=== PATIENT | male | born 1970 | race Caucasian/White ===

== ENCOUNTER 2020-01-23 00:59 | Outpatient (CLI) | payer OTHER, SELFPAY ==
[2020-01-23 18:41] LABS: SARS-CoV-2 RNA PCR Negative
== END 2020-01-23 01:00 | disposition home or self-care (01) ==
LOC: ANHCOVIDDT 00:59
PROVIDERS: PCP Internal Medicine; Visit Provider Internal Medicine Gastroenterology
DX: Z01.812 Encounter for preprocedural laboratory examination (principal); Z11.59 Encounter for screening for other viral diseases
CPT/HCPCS: 87635; C9803; U0003

== ENCOUNTER 2020-01-25 01:46 | Day surgery (SDC) | payer OTHER, SELFPAY ==
[2020-01-19 10:37] VITALS: BMI 33.6
[2020-01-25 08:13] VITALS: BP 112/92; PULSE 98; RESP 18; TEMP 36.6; O2SAT 99; BMI 33.6
--- NOTE | 2020-01-25 08:22 | WPDGICN ---
Assessment and Plan Assessment and plan (1) Encounter for screening for colorectal malignant neoplasm: Code(s): Z12.11 - Encounter for screening for malignant neoplasm of colon; Z12.12 - Encounter for screening for malignant neoplasm of rectum Status: Acute Assessment and Plan: Patient presents for screening colonoscopy. He is appears to be at average risk. Plan is for colonoscopy now further recommendations after exam. GI Consult Note Consult date/time: 01/25/20 08:22 HPI: Abiodun Spaulding is a 49 year old male seen in evaluation at the request of Dr Tellez. Patient presents for neoplasia screening. His current weight appetite bowel movements are normal. He denies abdominal pain. His bowel habits are normal. He denies any blood in his stools. Family history is noncontributory. Recent past history is significant for arthroscopic surgery with a rotator cuff repair on the right shoulder. Review of Systems Review of Systems: All systems reviewed & are unremarkable except as noted in HPI and below PMFSH Family History Family History Father Hypertension Mother Patient's mother is in good health Sibling Patient's brother is in good health Social History Social History Smoking status: Former smoker Second hand tobacco smoke exposure: No Smoking end date: 07/13/95 Alcohol intake: current Gender identity (if verbalized by the patient): Male Sexual Orientation (if Verbalized by the Patient): Straight or Heterosexual Meds Home Medications and Allergies Home Medications Medication Instructions Recorded Confirmed Type atorvastatin 20 mg tablet 20 mg PO DAILY #90 tablet 10/28/19 01/25/20 Rx metformin 1,000 mg tablet 1,000 mg PO DAILY 12/19/19 01/25/20 History metformin 500 mg tablet 500 mg PO DAILY 12/19/19 01/19/20 History multivitamin 1 tablet PO DAILY 12/19/19 01/25/20 History omega 9-sgy-yhh-fish oil 1,200 mg 1,200 cap PO DAILY 12/19/19 01/25/20 History (144 mg-216 mg) capsule fluticasone propionate [Flonase 2 spray INTRANASAL DAILY 01/19/20 01/25/20 History Allergy Relief] tamsulosin 0.4 mg capsule 0.4 mg PO DAILY #90 cap 01/23/20 Rx Allergies Allergy/AdvReac Type Severity Reaction Status Date / Time No Known Allergies Allergy Verified 01/25/20 08:02 Exam Narrative: Exam Narrative: Physical exam reveals patient to be alert. Vital signs stable. HEENT exam unremarkable. Lungs are clear to auscultation and percussion. Heart is without murmur or extra sounds. Abdominal exam bowel sounds are present soft nontender with no hepatosplenomegaly. Digital external rectal exam normal.
[2020-01-25] MEDS: LACTATED RINGERS 1,000 ML 150 ML IV CONT (08:28)
[2020-01-25 08:29] LABS: Glucose Point of Care 128 (65-105)
--- NOTE | 2020-01-25 08:53 | WPDANESEPPF ---
Anes - Initial Pre Proc Eval Procedure: Operation Date: 01/25/20 09:00 Proposed Procedures p Screening Colonoscopy - Nura Olson MD Date/Time: 01/25/20 08:53 Surgeon: Nura Olson MD Pre Op Diagnosis: neoplasm screening Patient Data Age: 49 Gender: M Height: 6 ft 3 in Weight: 122.2 kg Last Vital Signs Temp 98 F 01/25/20 08:13 Pulse 98 01/25/20 08:13 Resp 18 01/25/20 08:13 BP 112/92 H 01/25/20 08:13 Pulse Ox 99 01/25/20 08:13 Allergies Allergy/AdvReac Type Severity Reaction Status Date / Time No Known Allergies Allergy Verified 01/25/20 08:02 Home Medications Medication Instructions Recorded Confirmed Type atorvastatin 20 mg tablet 20 mg PO DAILY #90 tablet 10/28/19 01/25/20 Rx metformin 1,000 mg tablet 1,000 mg PO DAILY 12/19/19 01/25/20 History metformin 500 mg tablet 500 mg PO DAILY 12/19/19 01/19/20 History multivitamin 1 tablet PO DAILY 12/19/19 01/25/20 History omega 1-oap-ecv-fish oil 1,200 mg 1,200 cap PO DAILY 12/19/19 01/25/20 History (144 mg-216 mg) capsule fluticasone propionate [Flonase 2 spray INTRANASAL DAILY 01/19/20 01/25/20 History Allergy Relief] tamsulosin 0.4 mg capsule 0.4 mg PO DAILY #90 cap 01/23/20 Rx Laboratory Tests 01/25/20 08:21 POC Capillary Glucose 128 mg/dl H mg/dl (65-105) Patient hx anesthesia problems: none Family hx anesthesia problems: none PMFSH Past Medical History Medical History (Updated 01/25/20 @ 08:52 by Christian Leggett MD) Diabetes Hyperlipidemia RASHAD (obstructive sleep apnea) Family History Family History Father Hypertension Mother Patient's mother is in good health Sibling Patient's brother is in good health Social History Social History Smoking status: Former smoker Second hand tobacco smoke exposure: No Smoking end date: 07/13/95 Alcohol intake: current Gender identity (if verbalized by the patient): Male Sexual Orientation (if Verbalized by the Patient): Straight or Heterosexual Anes - Eval Final PreProcedure Day of Procedure 01/25/20 08:53 Patient weight: obese Heart: regular rate and rhythm Lungs: clear to auscultation Airway: Mallampati scale class II Neurological: alert and oriented Last oral intake: >/= 8 hours ASA classification: III Emergent: no Anesthetic plan: proceed Anesthesia type and monitoring: general GIVS and standard monitoring Informed Consent: The patient's anesthetic plan and its attendant risks and benefits were discussed with the patient/family/POA. Questions were solicited and answers provided to the satisfaction of the patient/family/POA.
[2020-01-25 09:14] VITALS: BP 109/71; PULSE 83; RESP 16; O2SAT 100
[2020-01-25 09:24] VITALS: BP 127/90; PULSE 85; O2SAT 100
[2020-01-25 09:34] VITALS: BP 126/86; PULSE 82; O2SAT 100
== END 2020-01-25 10:00 | disposition home or self-care (01) ==
PROVIDERS: PCP Internal Medicine; Visit Provider Internal Medicine Gastroenterology
PROC: 0DJD8ZZ Inspection of Lower Intestinal Tract, Via Natural or Artificial Opening Endoscopic (ICD-10-PCS; CPT 45378; principal; 2020-01-25 09:00)
DX: Z12.11 Encounter for screening for malignant neoplasm of colon (principal); K64.8 Other hemorrhoids; E78.5 Hyperlipidemia, unspecified; E11.9 Type 2 diabetes mellitus without complications; G47.33 Obstructive sleep apnea (adult) (pediatric); Z79.84 Long term (current) use of oral hypoglycemic drugs; Z87.891 Personal history of nicotine dependence; E66.9 Obesity, unspecified; Z68.33 Body mass index [BMI] 33.0-33.9, adult
CPT/HCPCS: 45378; J2704; J7120